=== PATIENT | male | born 1960 | race Caucasian/White ===

== ENCOUNTER 2018-12-06 05:55 | Emergency (ER) | payer MEDICAID, OTHER ==
--- NOTE | 2018-12-06 06:54 | ED Physician Chart ---
ED Chief Complaint/HPI - Patient Information Date Seen:: 12/06/18 Time Seen:: 06:54 Chief Complaint:: Feet pain and elevated blood pressure History of Present Illness:: 58 yo homeless male walked into the ER due to bilateral feet pain since yesterday afternoon after hiking and walking for long distance. Pt denied headache or dizziness. Pt was found to have elevated BP 185/115 in the waiting room. Pt denied headache, nausea or vomiting. Pt stated history of hypertension but he was not compliant with medication. He stated, "I just let it go." Allergies:: Allergies Allergy/AdvReac Type Severity Reaction Status Date / Time methylate Allergy Uncoded 01/11/16 13:00 Vitals:: Vital Signs - 8 hr 12/06/18 06:21 Temp 97.8 F HR 65 RR 19 BP 185/118 O2 Sat % 94 ED Review of Systems - Review of Systems General/Constitutional: No fever Skin: No rash Head: No headache Eyes: No pain ENT: No nasal drainage Neck: No neck pain Cardio Vascular: No chest pain Pulmonary: No SOB GI: No nausea, No vomiting Musculoskeletal: Bone or joint pain Neurological: No focal symptoms ED Past Medical History - Past Medical History Past Medical History: HTN Social History: Smoker, No Alcohol, Illicit Drug Use, Other Surgical History: Hernia (left inguinal), other Family Medical History - Family Member Mother History Unknown: Yes ED Physical Exam - Physical Examination General/Constitutional: Awake, Alert Head: Atraumatic Eyes: PERRL Skin: No ecchymosis ENMT: Nasal exam nl Neck: No nuchal rigidity Respiratory: No Wheeze/Rhonchi/Rales Cardio Vascular: RRR, No murmur, gallop, rubs, NL S1 S2 GI: No tenderness/rebounding/guarding Other Extremities comments:: Calluses on bilateral feet Neuro/Psych: Alert/oriented, No focal deficits ED Assessment - Assessment General Assessment: Bilateral feet pain Hypertension Assessment/Comments:: Clonidine 0.1mg PO x 1 ED Septic Shock - . Is Septic Shock (SBP<90, OR Lactate>4 mmol\\L) present?: No - <6hrs of presentation: Vital Signs: Vital Signs - 8 hr 12/06/18 06:21 Temp 97.8 F HR 65 RR 19 BP 185/118 O2 Sat % 94 ED Reassessment (Disposition) - Reassessment Reassessment:: BP improved after clonidine 0.1 mg D/c home F/u PCP for [facility]cc BP management of pt's hypertension Reassessment Condition:: Improved - Patient Disposition Discharge/Transfer:: Home
== END 2018-12-06 08:10 | disposition home or self-care (01) ==
LOC: ER 05:55
DX: I10 Essential (primary) hypertension (principal); M79.672 Pain in left foot; M79.671 Pain in right foot; F17.200 Nicotine dependence, unspecified, uncomplicated; Z59.0 Homelessness; Z88.8 Allergy status to other drugs, medicaments and biological substances; Z98.890 Other specified postprocedural states
CPT/HCPCS: Z7502; Z7610